=== PATIENT | female | born 1955 | race Caucasian/White ===

== ENCOUNTER 2019-09-07 16:41 | Inpatient (IN) | payer MEDICARE, MEDICAID ==
[~2019-09-07] VITALS: Ht 165.1 cm; Wt 85.2 kg
[2019-09-07] MEDS ORDERED: normal saline 1000ML IV soln IVB ONE (19:45)
[2019-09-07] MEDS ORDERED: ondansetron/PF 4mg/2ml inj IV ONE (19:45)
[2019-09-07] MEDS ORDERED: iohexol 300mg/ml 100ml inj. ONE (19:51)
--- NOTE | 2019-09-07 20:00 | NUR ---
PT IS ONLY ABLE TO LAY ON LEFT SIDE SECONDARY TO PAIN. SHE WILL BE MEDICATED ORDERED. SHE REPORTS THAT SHE TRIPPED YESTERDAY AND LANDED ON A TREE ROOT ON HER LEFT SIDE. C\O LEFT FLANK, RIB CAGE AND NECK/SHOULDER PAIN ON THE LEFT. PT HAS BILATERAL BREATH SOUNDS, PAIN WORSE WITH DEEP INSPIRATION.
[2019-09-07] MEDS: fentaNYL/PF 50MCG/1 ML 2ML syringe IV PRN ×3 (20:11→21:43)
--- NOTE | 2019-09-07 20:17 | NUR ---
daughter at bedside - pt has been medicated - awaiting CT scan
[2019-09-07 20:22] LABS: BASOPHILS # (AUTO) 0.1 X10'3 (0-0.2); BASOPHILS % (AUTO) 0.7 % (0-1); EOSINOPHILS % (AUTO) 0.1 % (0-6); HEMATOCRIT 30.3 % (35.0-45.0); HEMOGLOBIN 10.5 g/dl (12.0-16.0); LYMPHOCYTES # (AUTO) 1.3 X10'3 (1.1-4.8); LYMPHOCYTES % (AUTO) 12.5 % (21-51); MEAN CORPUSCULAR HGB CONC 34.7 g/dL (33.0-36.5); MEAN CORPUSCULAR VOLUME 86.5 FL (78-98); MEAN PLATELET VOLUME 7.4 FL (7.4-10.4); MONOCYTES # (AUTO) 0.4 X10'3 (0-0.9); MONOCYTES % (AUTO) 4.3 % (2-12); NEUTROPHILS # (AUTO) 8.6 X10'3 (1.8-7.7); NEUTROPHILS % (AUTO) 82.4 % (42-75); PLATELET COUNT 400 X10'3 (140-440); RED CELL DISTRIBUTION WIDTH 14.2 % (11.5-14.5); WHITE BLOOD COUNT 10.4 X10'3 (4.5-11.0)
[2019-09-07 20:30] LABS: ALANINE AMINOTRANSFERASE 21 U/L (12-78); ALBUMIN 3.6 G/DL (3.4-5.0); ALKALINE PHOSPHATASE 126 IU/L (46-116); ANION GAP 9 (8-16); ASPARTATE AMINO TRANSFERASE 11 U/L (10-37); BILIRUBIN,TOTAL 0.2 MG/DL (0.1-1.0); BLOOD UREA NITROGEN 13 MG/DL (7-18); BUN/CREATININE RATIO 9.2 (6.6-38.0); CHLORIDE 108 MMOL/L (99-107); CREATININE 1.42 MG/DL (0.40-0.90); GLUCOSE 140 MG/DL (70-104); POTASSIUM 3.8 MMOL/L (3.5-5.1); SODIUM 143 MMOL/L (135-145); TOTAL PROTEIN 7.2 G/DL (6.4-8.2); eGFR 37 ML/MIN
[2019-09-07 20:38] LABS: MAGNESIUM 2.1 MG/DL (1.5-2.4)
[2019-09-07] MEDS ORDERED: ringers solution, lacted 1,000 ML IV SCH (22:42)
[2019-09-07] MEDS ORDERED: morphine 4 MG/ML inj SYRINge IV PRN (22:45)
[2019-09-07] MEDS ORDERED: hydrALAZINE 20mg/ml inj. IV PRN (22:45)
[2019-09-07] MEDS ORDERED: labetalol 20mg/4ml (5mg/ml) syringe IV PRN (22:45)
[2019-09-07] MEDS ORDERED: fentaNYL/PF 50MCG/1 ML 2ML syringe IV PRN ×2 (22:45)
[2019-09-07] MEDS ORDERED: ondansetron/PF 4mg/2ml inj IV PRN (22:45)
[2019-09-07] MEDS ORDERED: fentaNYL/PF 50MCG/1 ML 2ML syringe ONE ×2 (22:58→23:42)
[2019-09-07] MEDS ORDERED: etomidate 2mg/ml inj. ONE (22:58)
[2019-09-07] MEDS ORDERED: midazolam 2 mg/2 ml injection ONE (22:58)
[2019-09-07] MEDS ORDERED: rocuronium 10mg/ml inj IV ONE (22:58)
[2019-09-07] MEDS ORDERED: ceFAZolin 1000mg inj ONE (23:01)
[2019-09-07] MEDS ORDERED: albumin (Human) 5% 250ml 250 ML IV ONE ×2 (23:04)
--- NOTE | 2019-09-07 23:07 | NUR ---
PT SEEN BY GELACIO AT BEDSIDE THEN TAKEN TO OR - CONSENTS PLACED ON CHART. 2ND IV STARTED AND EXTENSION TUBING PLACED. DAUGHTER AND PT UPDATED ON PLAN OF CARE.
[2019-09-07] MEDS ORDERED: labetalol 20mg/4ml (5mg/ml) syringe IV ONE (23:31)
[2019-09-07] MEDS ORDERED: glycopyrrolate 0.2mg/ml inj ONE (23:49)
[2019-09-07] MEDS ORDERED: neostigmine methylsulfate 1 MG/ML 10ml vial ONE (23:49)
[2019-09-07] MEDS ORDERED: ondansetron/PF 4mg/2ml inj ONE (23:50)
[2019-09-08] VITALS (25 sets, daily range): BP systolic 129–209; BP diastolic 61–102
[2019-09-08] MEDS ORDERED: sugammadex 200mg/2ml injection IV ONE
--- NOTE | 2019-09-08 00:15 | NUR ---
Patient arrived to floor from OR via hospital bed, in apparent severe pain. BP elevated, reading 170s systolically via arterial line. Midline incision with abd, dry and intact. Bedside report received from anesthesiologist. Autologous blood transfusion administered at bedside per MD orders. Order received for morphine CADD for pain control. Will continue to monitor patient closely.
[2019-09-08] MEDS: fentaNYL/PF 50MCG/1 ML 2ML syringe IV PRN ×2 (00:33→00:48)
[2019-09-08] MEDS ORDERED: CADD PCA waste documentation MC SCH (00:55)
[2019-09-08] MEDS: morphine/NS 5 mg/ml CADD 50 ML IV SCH ×8 (01:00→16:04)
[2019-09-08 01:01] LABS: BASOPHILS % (AUTO) 0.2 % (0-1); EOSINOPHILS % (AUTO) 0 % (0-6); LYMPHOCYTES # (AUTO) 1.7 X10'3 (1.1-4.8); LYMPHOCYTES % (AUTO) 8.4 % (21-51); MEAN CORPUSCULAR HEMOGLOBIN 29.9 PG (27.0-31.0); MEAN CORPUSCULAR VOLUME 87.7 FL (78-98); MEAN PLATELET VOLUME 7.5 FL (7.4-10.4); MONOCYTES # (AUTO) 1.2 X10'3 (0-0.9); MONOCYTES % (AUTO) 5.9 % (2-12); NEUTROPHILS % (AUTO) 85.5 % (42-75); PLATELET COUNT 335 X10'3 (140-440); RED BLOOD COUNT 2.13 X10'6 (4.20-5.60); RED CELL DISTRIBUTION WIDTH 14.1 % (11.5-14.5); WHITE BLOOD COUNT 19.9 X10'3 (4.5-11.0)
[2019-09-08 01:06] LABS: HEMATOCRIT 18.7 % (35.0-45.0); HEMOGLOBIN 6.4 g/dl (12.0-16.0)
[2019-09-08 01:11] LABS: PARTIAL THROMBOPLASTIN TIME 22 SECONDS (22-32)
[2019-09-08 01:13] LABS: ALANINE AMINOTRANSFERASE 17 U/L (12-78); ALBUMIN 3.4 G/DL (3.4-5.0); ALBUMIN/GLOBULIN RATIO 1.5 (1.1-1.5); ALKALINE PHOSPHATASE 81 IU/L (46-116); ANION GAP 11 (8-16); ASPARTATE AMINO TRANSFERASE 10 U/L (10-37); BILIRUBIN,TOTAL 0.2 MG/DL (0.1-1.0); BLOOD UREA NITROGEN 13 MG/DL (7-18); BUN/CREATININE RATIO 11.7 (6.6-38.0); CALCIUM 7.4 MG/DL (8.5-10.1); CHLORIDE 111 MMOL/L (99-107); CREATININE 1.11 MG/DL (0.40-0.90); GLUCOSE 151 MG/DL (70-104); MAGNESIUM 1.6 MG/DL (1.5-2.4); SODIUM 144 MMOL/L (135-145); TOTAL CARBON DIOXIDE 22.3 MMOL/L (24-32); TOTAL PROTEIN 5.7 G/DL (6.4-8.2); eGFR 49 ML/MIN
[2019-09-08] MEDS: morphine 4 MG/ML inj SYRINge IV PRN ×5 (01:48→02:43)
[2019-09-08] MEDS: normal saline 1000ml 1,000 ML IV SCH ×3 (02:12→20:53)
--- NOTE | 2019-09-08 03:05 | NUR ---
Multiple calls had been made to pharmacy since initial order at 0040 to get morphine cartridge, cartridge finally ready. Morphine CADD pump set up per MD orders, education provided for CADD use. Patient verbalized understanding and demonstrated by pushing button appropriately.
[2019-09-08 05:06] LABS: BASOPHILS % (AUTO) 0.1 % (0-1); EOSINOPHILS % (AUTO) 0 % (0-6); HEMATOCRIT 28.8 % (35.0-45.0); HEMOGLOBIN 9.7 g/dl (12.0-16.0); LYMPHOCYTES # (AUTO) 0.9 X10'3 (1.1-4.8); LYMPHOCYTES % (AUTO) 5.4 % (21-51); MEAN CORPUSCULAR HEMOGLOBIN 30.1 PG (27.0-31.0); MEAN CORPUSCULAR HGB CONC 33.7 g/dL (33.0-36.5); MEAN CORPUSCULAR VOLUME 89.4 FL (78-98); MEAN PLATELET VOLUME 7.8 FL (7.4-10.4); MONOCYTES # (AUTO) 0.7 X10'3 (0-0.9); MONOCYTES % (AUTO) 3.8 % (2-12); NEUTROPHILS # (AUTO) 15.7 X10'3 (1.8-7.7); NEUTROPHILS % (AUTO) 90.7 % (42-75); PLATELET COUNT 292 X10'3 (140-440); RED BLOOD COUNT 3.23 X10'6 (4.20-5.60); RED CELL DISTRIBUTION WIDTH 14.5 % (11.5-14.5); WHITE BLOOD COUNT 17.3 X10'3 (4.5-11.0)
[2019-09-08 05:35] LABS: ALANINE AMINOTRANSFERASE 21 U/L (12-78); ALBUMIN 3.7 G/DL (3.4-5.0); ALBUMIN/GLOBULIN RATIO 1.4 (1.1-1.5); ALKALINE PHOSPHATASE 89 IU/L (46-116); ANION GAP 9 (8-16); ASPARTATE AMINO TRANSFERASE 20 U/L (10-37); BILIRUBIN,TOTAL 0.6 MG/DL (0.1-1.0); BLOOD UREA NITROGEN 11 MG/DL (7-18); CALCIUM 7.8 MG/DL (8.5-10.1); CHLORIDE 109 MMOL/L (99-107); GLUCOSE 181 MG/DL (70-104); MAGNESIUM 1.6 MG/DL (1.5-2.4); PHOSPHORUS 3.5 MG/DL (2.3-4.5); POTASSIUM 3.3 MMOL/L (3.5-5.1); SODIUM 142 MMOL/L (135-145); TOTAL CARBON DIOXIDE 24.1 MMOL/L (24-32); TOTAL PROTEIN 6.3 G/DL (6.4-8.2); eGFR 56 ML/MIN
[2019-09-08] MEDS ORDERED: potassium Cl 20mEq/100mL bag 100 ML IV PRN (06:00)
[2019-09-08] MEDS ORDERED: potassium Cl 20 mEq SR tablet PO PRN (06:00)
[2019-09-08] MEDS: potassium CL 10mEq/100ml bag 100 ML IV PRN ×4 (06:24→11:57)
--- NOTE | 2019-09-08 06:26 | NUR ---
Problems reprioritized. Patient report given, questions answered & plan of care reviewed with Kimberly MÁRQUEZ.
[2019-09-08] MEDS: K and/or MAG REPLACEMENT MC SCH (08:00)
--- NOTE | 2019-09-08 09:00 | NUR ---
Patient c/o 9/10 pain. During assessing patient would not allow myself and my orienteer to turn her due to too much pain. We will attempt to turn the patient at a later time in the shift after patient has better pain control.
[2019-09-08] MEDS ORDERED: METO-411 PO (10:01)
[2019-09-08] MEDS ORDERED: VITA1CAP PO (10:19)
[2019-09-08] MEDS ORDERED: OMEP20TA23 PO (10:19)
[2019-09-08] MEDS ORDERED: DULO-31 PO (10:19)
[2019-09-08] MEDS ORDERED: BUPR600F2 PO (10:19)
[2019-09-08] MEDS ORDERED: GUAN1TAB28 PO (10:19)
[2019-09-08] MEDS ORDERED: POTA10TA10 PO (10:19)
[2019-09-08] MEDS ORDERED: FURO-149 PO (10:19)
[2019-09-08] MEDS ORDERED: ASPI-1265 PO (10:19)
[2019-09-08] MEDS ORDERED: LEVO75TA7 PO (10:19)
[2019-09-08] MEDS ORDERED: GABA600T13 PO ×3 (10:19→14:06)
[2019-09-08] MEDS ORDERED: PRAV40TA3 PO (10:19)
[2019-09-08] MEDS ORDERED: pneumococcal 23-VAL P-sac vacc 25 mcg/0.5ml vial IMVAC ONE (10:35)
[2019-09-08] MEDS ORDERED: DIPH-423 PO (10:39)
[2019-09-08] MEDS ORDERED: TIZA2CAP PO (10:39)
[2019-09-08] MEDS ORDERED: FURO40TA4 PO (10:50)
[2019-09-08] MEDS ORDERED: POTA-82 PO (10:50)
--- NOTE | 2019-09-08 12:00 | NUR ---
Orienteer documentation: I have reviewed and agree with interventions, assessments performed and documented by Bernadine Naranjo RN . Orienteer Medication Administration: For this medication-pass time frame, medication were reviewed, dispensed, administered and documented per hospital policy by Bernadine Naranjo RN.
[2019-09-08] MEDS ORDERED: CADD PCA waste documentation MC PRN ×2 (12:35→16:40)
[2019-09-08] MEDS ORDERED: naloxone 0.4 mg/ml inj IV PRN ×2 (12:35→16:40)
--- NOTE | 2019-09-08 12:47 | NUR ---
Patient in room CICU 2016. I have received report from Lelo MÁRQUEZ and had the opportunity to ask questions and assume patient care.
--- NOTE | 2019-09-08 12:47 | NUR ---
Patient has been in 8-9/10 pain during this shift. She has a Morphine CADD pump at which she has 1.00 mg available to her with a [address] Carter came during rounds and gave orders for the patient to have a 0.5mg continuous rate. Charge nurse Jennifer addressed this. Due tob patient's pain, she was not allowing for turning her. I was not able to do a complete skin assessment. I passed this information on to WILLI Mckeon in report as I will be passing this patient off. Problems reprioritized. Patient report given, questions answered & plan of care reviewed with WILLI Mckeon.
[2019-09-08] MEDS ORDERED: POTA10TA36 PO (13:57)
[2019-09-08] MEDS ORDERED: LORA10TA7 PO (14:06)
[2019-09-08] MEDS ORDERED: BUPR450F2 SL (14:06)
[2019-09-08] MEDS ORDERED: BUPR600F2 BU (14:17)
[2019-09-08 14:38] LABS: HEMATOCRIT 27.7 % (35.0-45.0); HEMOGLOBIN 9.2 g/dl (12.0-16.0); MEAN CORPUSCULAR HGB CONC 33.3 g/dL (33.0-36.5); MEAN CORPUSCULAR VOLUME 90.1 FL (78-98); MEAN PLATELET VOLUME 7.7 FL (7.4-10.4); PLATELET COUNT 277 X10'3 (140-440); RED BLOOD COUNT 3.08 X10'6 (4.20-5.60); RED CELL DISTRIBUTION WIDTH 14.9 % (11.5-14.5); WHITE BLOOD COUNT 18.7 X10'3 (4.5-11.0)
[2019-09-08] MEDS ORDERED: ondansetron/PF 4mg/2ml inj IV PRN (14:40)
[2019-09-08] MEDS ORDERED: ondansetron/PF 4mg/2ml inj ONE (14:44)
--- NOTE | 2019-09-08 15:16 | NUR ---
Previous day nurse Lelo stated pt. refused to turn all shift today. Pt. turned for skin check and to remove extra linen that came from OR last noc/yesterday. Open area noted to left buttock. Photos obtained. Foam dressing applied. Charge nurse notified and WOC care order placed.
--- NOTE | 2019-09-08 16:35 | NUR ---
Dr. Carter notified of vomiting unrelieved by Zofran. Order received to increase dose to 8mg.
[2019-09-08] MEDS: HYDROmorphone/NS 1 mg/ml CADD 50 ML IV SCH ×6 (17:00→23:00)
--- NOTE | 2019-09-08 17:18 | NUR ---
Morphine CADD dc'd. Replaced with Dilaudid REROLLING MACHINE OPERATOR @ standard settings.
[2019-09-08 17:23] LABS: HEMATOCRIT 28.2 % (35.0-45.0); HEMOGLOBIN 9.4 g/dl (12.0-16.0); MEAN CORPUSCULAR HEMOGLOBIN 29.9 PG (27.0-31.0); MEAN CORPUSCULAR HGB CONC 33.4 g/dL (33.0-36.5); MEAN CORPUSCULAR VOLUME 89.4 FL (78-98); PLATELET COUNT 308 X10'3 (140-440); RED BLOOD COUNT 3.15 X10'6 (4.20-5.60); WHITE BLOOD COUNT 20.2 X10'3 (4.5-11.0)
[2019-09-08] MEDS: ondansetron/PF 4mg/2ml inj IV PRN ×2 (17:33→23:31)
--- NOTE | 2019-09-08 18:03 | NUR ---
Pt. continues to vomit despite the increased Zofran dose, c/o pain but hesitant to use Dil. DIESEL ENGINE SPECIALIST due to n/v. RN told Charge Nurse pt. may need NGT.
--- NOTE | 2019-09-08 18:33 | NUR ---
Patient in room CICU 2016. I have received report from Linda MÁRQUEZ and had the opportunity to ask questions and assume patient care. Patient in bed in high-gonzalez's with eyes closed, in no apparent distress at this time. BP elevated with SBP in 180s-190s via arterial line. Dilaudid CADD pump running for pain control. Will continue to monitor patient closely.
--- NOTE | 2019-09-08 19:00 | NUR ---
Notified Julius Hirsch regarding patient's SBP between 190s-200s via arterial line, as well as patient's persistent nausea/vomiting despite recent zofran administration. New orders received.
[2019-09-08] MEDS: docusate sod 100mg capsule PO SCH (19:11)
[2019-09-08] MEDS: sennosides/docusate sodium tablet PO SCH (19:11)
[2019-09-08] MEDS: hydrALAZINE 20mg/ml inj. IV PRN (19:19)
[2019-09-08] MEDS: proCHLORperazine 10 MG/2 ml inj IV PRN (19:19)
[2019-09-08] MEDS ORDERED: hydrALAZINE 20mg/ml inj. IV ONE (20:10)
--- NOTE | 2019-09-08 21:41 | NUR ---
Notified Julius Hirsch regarding patient's persistent pain on current CADD settings. States okay to increase demand dose to 0.3mg q10 minutes PRN and to add a continuous rate of 0.3mg/hr. Will change settings on pump.
[2019-09-08] MEDS: acetaminophen 650mg rectal suppository RC PRN (22:17)
[2019-09-09] VITALS (24 sets, daily range): BP systolic 109–197; BP diastolic 63–88
[2019-09-09 00:58] LABS: BASOPHILS # (AUTO) 0.1 X10'3 (0-0.2); BASOPHILS % (AUTO) 0.6 % (0-1); EOSINOPHILS # (AUTO) 0.1 X10'3 (0-0.9); MEAN CORPUSCULAR VOLUME 89.3 FL (78-98); MEAN PLATELET VOLUME 7.8 FL (7.4-10.4); WHITE BLOOD COUNT 20.7 X10'3 (4.5-11.0)
[2019-09-09 01:00] LABS: EOSINOPHILS % (AUTO) 0.5 % (0-6); HEMATOCRIT 27.9 % (35.0-45.0); HEMOGLOBIN 9.4 g/dl (12.0-16.0); LYMPHOCYTES # (AUTO) 2.3 X10'3 (1.1-4.8); LYMPHOCYTES % (AUTO) 11.2 % (21-51); MEAN CORPUSCULAR HEMOGLOBIN 30.2 PG (27.0-31.0); MEAN CORPUSCULAR HGB CONC 33.8 g/dL (33.0-36.5); MONOCYTES # (AUTO) 2.1 X10'3 (0-0.9); MONOCYTES % (AUTO) 10.2 % (2-12); NEUTROPHILS % (AUTO) 77.5 % (42-75); PLATELET COUNT 292 X10'3 (140-440); RED BLOOD COUNT 3.12 X10'6 (4.20-5.60); RED CELL DISTRIBUTION WIDTH 14.7 % (11.5-14.5)
[2019-09-09] MEDS: HYDROmorphone/NS 1 mg/ml CADD 50 ML IV SCH ×12 (01:00→23:00)
[2019-09-09 01:09] LABS: ALANINE AMINOTRANSFERASE 20 U/L (12-78); ALBUMIN 3.3 G/DL (3.4-5.0); ALBUMIN/GLOBULIN RATIO 1.1 (1.1-1.5); ALKALINE PHOSPHATASE 77 IU/L (46-116); ANION GAP 10 (8-16); ASPARTATE AMINO TRANSFERASE 22 U/L (10-37); BILIRUBIN,TOTAL 0.3 MG/DL (0.1-1.0); BLOOD UREA NITROGEN 11 MG/DL (7-18); BUN/CREATININE RATIO 13.9 (6.6-38.0); CALCIUM 7.7 MG/DL (8.5-10.1); CHLORIDE 112 MMOL/L (99-107); CREATININE 0.79 MG/DL (0.40-0.90); GLUCOSE 125 MG/DL (70-104); MAGNESIUM 1.7 MG/DL (1.5-2.4); PHOSPHORUS 2.8 MG/DL (2.3-4.5); POTASSIUM 3.5 MMOL/L (3.5-5.1); SODIUM 145 MMOL/L (135-145); TOTAL CARBON DIOXIDE 22.6 MMOL/L (24-32); TOTAL PROTEIN 6.2 G/DL (6.4-8.2); eGFR 73 ML/MIN
[2019-09-09 01:24] LABS: NUCLEATED RED BLOOD CELLS 9 /100WBC (0-0); TOTAL CELLS COUNTED 100
[2019-09-09 01:25] LABS: LARGE PLATELETS FEW; PLATELET ESTIMATE NORMAL
[2019-09-09] MEDS: proCHLORperazine 10 MG/2 ml inj IV PRN ×3 (02:55→18:59)
[2019-09-09] MEDS: hydrALAZINE 20mg/ml inj. IV PRN ×2 (04:34→10:21)
[2019-09-09] MEDS: ondansetron/PF 4mg/2ml inj IV PRN ×3 (05:26→23:48)
--- NOTE | 2019-09-09 06:00 | NUR ---
Notified Julius Hirshc NP regarding patient's HR back into 130s in sinus tach. No new orders received at this time.
--- NOTE | 2019-09-09 06:30 | NUR ---
Patient in room CICU 2016. I have received report from Jose MÁRQUEZ and had the opportunity to ask questions and assume patient care.
--- NOTE | 2019-09-09 06:34 | NUR ---
Problems reprioritized. Patient report given, questions answered & plan of care reviewed with Le MÁRQUEZ.
[2019-09-09] MEDS: normal saline 1000ml 1,000 ML IV SCH ×2 (06:53→16:53)
[2019-09-09] MEDS: K and/or MAG REPLACEMENT MC SCH (07:27)
--- NOTE | 2019-09-09 07:28 | NUR ---
per dr navarrete we are restarting the metoprolol 100 mg PO daily to address the HR of 136
[2019-09-09] MEDS: docusate sod 100mg capsule PO SCH ×2 (07:44→20:47)
[2019-09-09] MEDS: sennosides/docusate sodium tablet PO SCH ×2 (07:45→20:47)
[2019-09-09] MEDS ORDERED: metoprolol tartrate 50mg tablet PO SCH (08:00)
[2019-09-09] MEDS: acetaminophen 650mg rectal suppository RC PRN (10:35)
[2019-09-09] MEDS ORDERED: furosemide 40mg tablet PO PRN (10:55)
[2019-09-09] MEDS ORDERED: vancomycin inj 1,250 MG in normal saline 250ml IV soln 250 ML IV SCH (11:00)
[2019-09-09 11:19] LABS: MEAN CORPUSCULAR HEMOGLOBIN 30.4 PG (27.0-31.0); MEAN CORPUSCULAR HGB CONC 33.5 g/dL (33.0-36.5); MEAN CORPUSCULAR VOLUME 90.9 FL (78-98); MEAN PLATELET VOLUME 8.1 FL (7.4-10.4); PLATELET COUNT 296 X10'3 (140-440); RED BLOOD COUNT 2.97 X10'6 (4.20-5.60); RED CELL DISTRIBUTION WIDTH 15.3 % (11.5-14.5); WHITE BLOOD COUNT 20.3 X10'3 (4.5-11.0)
[2019-09-09] MEDS: cefTAZidime inj. 1 GM in normal saline 100ml IV soln 100 ML IV SCH ×2 (11:35→17:15)
[2019-09-09] MEDS: gabapentin 300mg capsule PO SCH ×2 (11:35→20:47)
[2019-09-09] MEDS: VANCOmycin 1250MG/NS 250ml Bag 250 ML IV SCH (13:05)
--- NOTE | 2019-09-09 14:15 | NUR ---
Initial: Pt admit s/p fall and subsequent splenectomy. Septic w/ fever today per MD. Advanced to clear liquids from NPO PO pending. LBM 09/07. Pt is nauseous receiving zofran at this time. Will monitor for PO tolerance and diet advancement as well as additional protein needs. Rec: 1. advance diet per MD to heart healthy 2. monitor for additional protein needs pending PO hx 3. bowel care post-op 4. wt per rx Addendum: 09/09/19 at [address] Amended: Links added.
--- NOTE | 2019-09-09 17:00 | NUR ---
Patient's art line removed, cannula intact, bandage dry and clean, no blood noted. Will continue to monitor.
[2019-09-09] MEDS ORDERED: diltiazem 5mg/ml 5ml inj. IV PRN (17:35)
--- NOTE | 2019-09-09 17:36 | NUR ---
Patient had run of SVT up to 214, returned to sinus tach, notified Dr. Bullock, received order for cardizem 10 mg IVP as needed for SVT. Will continue to monitor
--- NOTE | 2019-09-09 18:39 | NUR ---
Problems reprioritized. Patient report given, questions answered & plan of care reviewed with MAC RN.
[2019-09-09] MEDS ORDERED: tPA-cathflo 2 MG/2 ml IV flush IVF ONE (19:55)
[2019-09-09] MEDS: BUPRENORPHINE HCL 600 MCG PO SCH (20:00)
[2019-09-09] MEDS: potassium chloride 10mEq ER tablet PO SCH (20:00)
[2019-09-09] MEDS: guanFACINE 1 mg tablet PO SCH (20:47)
[2019-09-09] MEDS: tizanidine 4mg tablet PO PRN (20:47)
[2019-09-09] MEDS: pravastatin 40mg tablet PO SCH (21:00)
[2019-09-10] VITALS (18 sets, daily range): BP systolic 121–162; BP diastolic 77–95
[2019-09-10 00:16] LABS: HEMATOCRIT 27.5 % (35.0-45.0); MEAN CORPUSCULAR HEMOGLOBIN 30.3 PG (27.0-31.0); MEAN CORPUSCULAR HGB CONC 32.6 g/dL (33.0-36.5); MEAN CORPUSCULAR VOLUME 92.7 FL (78-98); MEAN PLATELET VOLUME 8.1 FL (7.4-10.4); PLATELET COUNT 162 X10'3 (140-440); RED BLOOD COUNT 2.97 X10'6 (4.20-5.60); RED CELL DISTRIBUTION WIDTH 15.7 % (11.5-14.5); WHITE BLOOD COUNT 20.7 X10'3 (4.5-11.0)
[2019-09-10] MEDS: cefTAZidime inj. 1 GM in normal saline 100ml IV soln 100 ML IV SCH ×3 (00:33→17:25)
[2019-09-10] MEDS: HYDROmorphone/NS 1 mg/ml CADD 50 ML IV SCH ×9 (01:00→17:00)
[2019-09-10] MEDS ORDERED: acetaminophen 325mg tablet PO PRN (03:30)
[2019-09-10] MEDS: VANCOmycin 1250MG/NS 250ml Bag 250 ML IV SCH ×3 (03:46→23:15)
[2019-09-10] MEDS: normal saline 1000ml 1,000 ML IV SCH (03:46)
[2019-09-10] MEDS: proCHLORperazine 10 MG/2 ml inj IV PRN (03:50)
[2019-09-10 05:16] LABS: ALANINE AMINOTRANSFERASE 24 U/L (12-78); ALBUMIN 2.9 G/DL (3.4-5.0); ALBUMIN/GLOBULIN RATIO 0.9 (1.1-1.5); ALKALINE PHOSPHATASE 79 IU/L (46-116); ANION GAP 9 (8-16); ASPARTATE AMINO TRANSFERASE 19 U/L (10-37); BILIRUBIN,TOTAL 0.3 MG/DL (0.1-1.0); BLOOD UREA NITROGEN 8 MG/DL (7-18); BUN/CREATININE RATIO 13.3 (6.6-38.0); CALCIUM 7.6 MG/DL (8.5-10.1); CHLORIDE 113 MMOL/L (99-107); GLUCOSE 116 MG/DL (70-104); PHOSPHORUS 2.4 MG/DL (2.3-4.5); SODIUM 146 MMOL/L (135-145); TOTAL CARBON DIOXIDE 24.1 MMOL/L (24-32); TOTAL PROTEIN 6.1 G/DL (6.4-8.2); eGFR > 90 ML/MIN
[2019-09-10 05:18] LABS: POTASSIUM 2.9 MMOL/L (3.5-5.1)
[2019-09-10 05:33] LABS: BASOPHILS # (AUTO) 0.1 X10'3 (0-0.2); BASOPHILS % (AUTO) 0.4 % (0-1); EOSINOPHILS # (AUTO) 1.2 X10'3 (0-0.9); EOSINOPHILS % (AUTO) 6.3 % (0-6); HEMATOCRIT 25.7 % (35.0-45.0); HEMOGLOBIN 8.5 g/dl (12.0-16.0); LYMPHOCYTES % (AUTO) 10.5 % (21-51); MEAN CORPUSCULAR HEMOGLOBIN 30.2 PG (27.0-31.0); MEAN CORPUSCULAR HGB CONC 33.1 g/dL (33.0-36.5); MEAN CORPUSCULAR VOLUME 91.1 FL (78-98); MEAN PLATELET VOLUME 8.2 FL (7.4-10.4); MONOCYTES % (AUTO) 10.9 % (2-12); NEUTROPHILS # (AUTO) 13.4 X10'3 (1.8-7.7); NEUTROPHILS % (AUTO) 71.9 % (42-75); PLATELET COUNT 291 X10'3 (140-440); RED BLOOD COUNT 2.82 X10'6 (4.20-5.60); RED CELL DISTRIBUTION WIDTH 15.4 % (11.5-14.5); WHITE BLOOD COUNT 18.7 X10'3 (4.5-11.0)
--- NOTE | 2019-09-10 06:00 | NUR ---
RN Note -Shift Summary Pt has had pain and nausea, is reluctant to move and eat. Educated pt on the need to have something in her stomach, especially with pain meds. Started to eat jello and drink tea around 0400 and had some improvement with nausea.
[2019-09-10] MEDS: potassium CL 10mEq/100ml bag 100 ML IV PRN ×8 (06:03→18:55)
[2019-09-10 06:41] LABS: LARGE PLATELETS FEW; NUCLEATED RED BLOOD CELLS 2 /100WBC (0-0); PLATELET ESTIMATE NORMAL; POLYCHROMASIA 1+; TOTAL CELLS COUNTED 100
--- NOTE | 2019-09-10 06:48 | NUR ---
Patient in room CICU 2016. I have received report from WILLI Saez and had the opportunity to ask questions and assume patient care.
[2019-09-10] MEDS: K and/or MAG REPLACEMENT MC SCH (07:34)
[2019-09-10] MEDS: levoTHYROXINE 75mcg tablet PO SCH (07:50)
[2019-09-10] MEDS: pantoprazole 40mg Tablet.DR PO SCH (07:50)
[2019-09-10] MEDS: BUPRENORPHINE HCL 600 MCG PO SCH ×2 (08:00→20:00)
[2019-09-10] MEDS: loratadine 10mg tablet PO SCH (08:35)
[2019-09-10] MEDS: vitamin B comp w/Vit. C tab 1 TAB TABLET PO SCH (08:35)
[2019-09-10] MEDS: duloxetine 30mg CAPSULE.DR PO SCH (08:35)
[2019-09-10] MEDS: sennosides/docusate sodium tablet PO SCH ×2 (08:36→20:41)
[2019-09-10] MEDS: aspirin 81mg tab.chew PO SCH (08:36)
[2019-09-10] MEDS: docusate sod 100mg capsule PO SCH ×2 (08:36→20:38)
[2019-09-10] MEDS: metoprolol succinate 25mg (24-HOUR) SR. Tablet PO SCH (08:36)
[2019-09-10] MEDS: potassium chloride 10mEq ER tablet PO SCH ×2 (08:37→20:39)
[2019-09-10] MEDS: gabapentin 400mg capsule PO SCH (08:45)
[2019-09-10 09:50] LABS: CLARITY,URINE CLEAR (Clear); COLOR,URINE STRAW (Yellow); GLUCOSE, URINE NEGATIVE (Neg); KETONES,URINE NEGATIVE (Neg); LEUKOCYTE ESTERASE ,URINE NEGATIVE (Neg); NITRITES, URINE NEGATIVE (Neg); OCCULT BLOOD,URINE TRACE-LYSED (Neg); PROTEIN,URINE NEGATIVE (Neg); UROBILINOGEN,URINE 0.2 E.U/dL (0.2-1.0)
[2019-09-10 09:51] LABS: UA COLLECTION TYPE FOLEY CATH
[2019-09-10 10:11] LABS: BACTERIA,URINE FEW /HPF (Neg); MUCUS STRANDS FEW /LPF (Neg); SQUAMOUS EPITHELIAL CELL,UR FEW /LPF (FEW)
[2019-09-10] MEDS: ondansetron/PF 4mg/2ml inj IV PRN (10:58)
[2019-09-10] MEDS: gabapentin 300mg capsule PO SCH ×2 (12:00→20:41)
--- NOTE | 2019-09-10 15:00 | NUR ---
Received patient on unit stable. CADD pump running and working. Settings checked with ICU nurse. Patient c/o tenderness to Left AC IV. Site is reddened and warm and tender. IV DC'd and PICC nurse called to start new IV.
--- NOTE | 2019-09-10 18:00 | NUR ---
Problems reprioritized. Patient report given, questions answered & plan of care reviewed with Jamie MÁRQUEZ.
--- NOTE | 2019-09-10 18:40 | NUR ---
Patient in room PCU 3016. I have received report from WILLI Read and had the opportunity to ask questions and assume patient care. Pt is sleeping with no sign of distress. Administering latest bag of potassium, then I will order a redraw(2-6 hours) per protocol.
[2019-09-10] MEDS: HYDROmorphone 1 mg/ml syringe IV PRN (20:14)
[2019-09-10] MEDS: lactobacillus rhamnosus 10,000 MMU CELLS/CAPSULE PO SCH (20:39)
[2019-09-10] MEDS: pravastatin 40mg tablet PO SCH (22:10)
[2019-09-10] MEDS: tizanidine 4mg tablet PO PRN (22:20)
[2019-09-10] MEDS ORDERED: VANCOMYCIN LEVEL IV ONE (22:30)
[2019-09-10 23:07] LABS: POTASSIUM 3.4 MMOL/L (3.5-5.1)
[2019-09-11] MEDS: ondansetron/PF 4mg/2ml inj IV PRN (00:02)
[2019-09-11] MEDS: HYDROmorphone 1 mg/ml syringe IV PRN ×5 (00:13→19:32)
[2019-09-11] MEDS: guanFACINE 1 mg tablet PO SCH (00:28)
[2019-09-11] MEDS: cefTAZidime inj. 1 GM in normal saline 100ml IV soln 100 ML IV SCH ×3 (01:13→17:04)
[2019-09-11 02:00] VITALS: BP 105/52
--- NOTE | 2019-09-11 02:08 | NUR ---
Requested Tenex tab form pharmacy. Pravachol medication was on CICU and her daughter would bring Buprenorphine later-on today
[2019-09-11 05:24] LABS: BASOPHILS # (AUTO) 0.1 X10'3 (0-0.2); BASOPHILS % (AUTO) 0.5 % (0-1); EOSINOPHILS # (AUTO) 1.5 X10'3 (0-0.9); EOSINOPHILS % (AUTO) 9.5 % (0-6); HEMATOCRIT 23.5 % (35.0-45.0); HEMOGLOBIN 7.9 g/dl (12.0-16.0); LYMPHOCYTES # (AUTO) 2.2 X10'3 (1.1-4.8); LYMPHOCYTES % (AUTO) 13.7 % (21-51); MEAN CORPUSCULAR HEMOGLOBIN 30.5 PG (27.0-31.0); MEAN CORPUSCULAR HGB CONC 33.5 g/dL (33.0-36.5); MEAN CORPUSCULAR VOLUME 90.9 FL (78-98); MONOCYTES # (AUTO) 1.7 X10'3 (0-0.9); MONOCYTES % (AUTO) 10.6 % (2-12); NEUTROPHILS # (AUTO) 10.5 X10'3 (1.8-7.7); NEUTROPHILS % (AUTO) 65.7 % (42-75); PLATELET COUNT 327 X10'3 (140-440); RED BLOOD COUNT 2.59 X10'6 (4.20-5.60); RED CELL DISTRIBUTION WIDTH 15.4 % (11.5-14.5)
[2019-09-11 05:46] LABS: ALANINE AMINOTRANSFERASE 20 U/L (12-78); ALBUMIN 2.5 G/DL (3.4-5.0); ALBUMIN/GLOBULIN RATIO 0.8 (1.1-1.5); ALKALINE PHOSPHATASE 77 IU/L (46-116); ANION GAP 6 (8-16); ASPARTATE AMINO TRANSFERASE 20 U/L (10-37); BILIRUBIN,TOTAL 0.3 MG/DL (0.1-1.0); BLOOD UREA NITROGEN 8 MG/DL (7-18); BUN/CREATININE RATIO 12.7 (6.6-38.0); CALCIUM 7.9 MG/DL (8.5-10.1); CHLORIDE 109 MMOL/L (99-107); CREATININE 0.63 MG/DL (0.40-0.90); GLUCOSE 112 MG/DL (70-104); PHOSPHORUS 1.7 MG/DL (2.3-4.5); POTASSIUM 3.4 MMOL/L (3.5-5.1); SODIUM 141 MMOL/L (135-145); TOTAL CARBON DIOXIDE 25.6 MMOL/L (24-32); TOTAL PROTEIN 5.5 G/DL (6.4-8.2); eGFR > 90 ML/MIN
[2019-09-11 06:00] VITALS: BP 109/63
--- NOTE | 2019-09-11 06:00 | NUR ---
Patient in room PCU 3016. I have received report from Jamie MÁRQUEZ and had the opportunity to ask questions and assume patient care.
--- NOTE | 2019-09-11 06:25 | NUR ---
Problems reprioritized. Patient report given, questions answered & plan of care reviewed with WILLI Read. Patient stable at shift change
[2019-09-11 07:52] LABS: NUCLEATED RED BLOOD CELLS 4 /100WBC (0-0); TOTAL CELLS COUNTED 100
[2019-09-11] MEDS: metoprolol succinate 25mg (24-HOUR) SR. Tablet PO SCH (07:52)
[2019-09-11] MEDS: potassium chloride 10mEq ER tablet PO SCH ×2 (07:53→21:41)
[2019-09-11] MEDS: gabapentin 400mg capsule PO SCH (07:53)
[2019-09-11] MEDS: duloxetine 30mg CAPSULE.DR PO SCH (07:53)
[2019-09-11] MEDS: vitamin B comp w/Vit. C tab 1 TAB TABLET PO SCH (07:53)
[2019-09-11] MEDS: pantoprazole 40mg Tablet.DR PO SCH (07:53)
[2019-09-11] MEDS: sennosides/docusate sodium tablet PO SCH ×2 (07:53→21:22)
[2019-09-11] MEDS: docusate sod 100mg capsule PO SCH ×2 (07:53→21:23)
[2019-09-11] MEDS: lactobacillus rhamnosus 10,000 MMU CELLS/CAPSULE PO SCH ×2 (07:53→21:22)
[2019-09-11] MEDS: aspirin 81mg tab.chew PO SCH (07:53)
[2019-09-11 07:54] LABS: PLATELET ESTIMATE NORMAL; POLYCHROMASIA 1+; TEAR DROP CELLS FEW
[2019-09-11] MEDS: BUPRENORPHINE HCL 600 MCG PO SCH ×2 (08:00→20:00)
[2019-09-11] MEDS: levoTHYROXINE 75mcg tablet PO SCH (08:06)
[2019-09-11] MEDS: loratadine 10mg tablet PO SCH (08:07)
--- NOTE | 2019-09-11 09:49 | NUR ---
Call to Dr Worthington re: increased abdominal pain despite IV Dilaudid. No new orders.
[2019-09-11] MEDS ORDERED: magnesium 4gm in 100ml NS 100 ML IV PRN (10:45)
[2019-09-11] MEDS ORDERED: magnesium Cl slow-release 64mg tablet PO PRN (10:45)
[2019-09-11 11:00] VITALS: BP 111/56
[2019-09-11] MEDS: gabapentin 300mg capsule PO SCH ×2 (11:21→21:23)
[2019-09-11] MEDS: Neutra Phos packet PO PRN (11:21)
[2019-09-11] MEDS: potassium Cl 20 mEq SR tablet PO PRN (11:21)
[2019-09-11] MEDS: K and/or MAG REPLACEMENT MC SCH (11:22)
--- NOTE | 2019-09-11 14:06 | NUR ---
Page to PICC nurse re: Room 9981L Arlen Kulkarni PIV reddened,tender and swollen, just started yesterday by PICC after 2 attempts by nursing. Can you place an extended please?
[2019-09-11 15:00] VITALS: BP 122/69
[2019-09-11 18:00] VITALS: BP 149/79
--- NOTE | 2019-09-11 18:00 | NUR ---
Problems reprioritized. Patient report given, questions answered & plan of care reviewed with Jamie MÁRQUEZ.
--- NOTE | 2019-09-11 18:05 | NUR ---
Patient in room PCU 3014O I have received report from WILLI Read and had the opportunity to ask questions and assume patient care.
[2019-09-11] MEDS: pravastatin 40mg tablet PO SCH (21:23)
[2019-09-11] MEDS: tizanidine 4mg tablet PO PRN (21:24)
[2019-09-11 22:00] VITALS: BP 141/74
[2019-09-12] MEDS: HYDROmorphone 1 mg/ml syringe IV PRN ×5 (00:07→20:59)
[2019-09-12] MEDS: guanFACINE 1 mg tablet PO SCH ×2 (00:08→20:55)
[2019-09-12] MEDS: Neutra Phos packet PO PRN (00:55)
[2019-09-12] MEDS: potassium Cl 20 mEq SR tablet PO PRN ×4 (00:56→15:35)
[2019-09-12] MEDS: cefTAZidime inj. 1 GM in normal saline 100ml IV soln 100 ML IV SCH ×3 (01:38→15:36)
[2019-09-12 02:00] VITALS: BP 111/69
[2019-09-12 06:00] VITALS: BP 127/72
--- NOTE | 2019-09-12 06:00 | NUR ---
Patient in room PCU 3016. I have received report from Jamie MÁRQUEZ and had the opportunity to ask questions and assume patient care.
--- NOTE | 2019-09-12 07:01 | NUR ---
Problems reprioritized. Patient report given, questions answered & plan of care reviewed with WILLI Read. Pt in stable condition at shift change
[2019-09-12] MEDS: BUPRENORPHINE HCL 600 MCG PO SCH ×2 (08:00→20:00)
[2019-09-12] MEDS: docusate sod 100mg capsule PO SCH ×2 (08:00→20:00)
[2019-09-12] MEDS: sennosides/docusate sodium tablet PO SCH ×2 (08:00→20:00)
[2019-09-12] MEDS: K and/or MAG REPLACEMENT MC SCH (08:00)
[2019-09-12 08:29] LABS: ALANINE AMINOTRANSFERASE 28 U/L (12-78); ALBUMIN 2.6 G/DL (3.4-5.0); ALBUMIN/GLOBULIN RATIO 0.8 (1.1-1.5); ALKALINE PHOSPHATASE 82 IU/L (46-116); ANION GAP 6 (8-16); ASPARTATE AMINO TRANSFERASE 24 U/L (10-37); BILIRUBIN,TOTAL 0.4 MG/DL (0.1-1.0); BLOOD UREA NITROGEN 6 MG/DL (7-18); BUN/CREATININE RATIO 9.7 (6.6-38.0); CALCIUM 8.2 MG/DL (8.5-10.1); CHLORIDE 109 MMOL/L (99-107); CREATININE 0.62 MG/DL (0.40-0.90); GLUCOSE 102 MG/DL (70-104); PHOSPHORUS 2.3 MG/DL (2.3-4.5); POTASSIUM 3.4 MMOL/L (3.5-5.1); SODIUM 141 MMOL/L (135-145); TOTAL CARBON DIOXIDE 25.8 MMOL/L (24-32); TOTAL PROTEIN 5.9 G/DL (6.4-8.2); eGFR > 90 ML/MIN
[2019-09-12] MEDS: loratadine 10mg tablet PO SCH (08:33)
[2019-09-12] MEDS: vitamin B comp w/Vit. C tab 1 TAB TABLET PO SCH (08:33)
[2019-09-12] MEDS: aspirin 81mg tab.chew PO SCH (08:33)
[2019-09-12] MEDS: pantoprazole 40mg Tablet.DR PO SCH (08:33)
[2019-09-12] MEDS: potassium chloride 10mEq ER tablet PO SCH ×2 (08:33→20:55)
[2019-09-12] MEDS: lactobacillus rhamnosus 10,000 MMU CELLS/CAPSULE PO SCH ×2 (08:34→20:55)
[2019-09-12] MEDS: levoTHYROXINE 75mcg tablet PO SCH (08:34)
[2019-09-12] MEDS: duloxetine 30mg CAPSULE.DR PO SCH (08:34)
[2019-09-12] MEDS: gabapentin 400mg capsule PO SCH (08:34)
[2019-09-12] MEDS: metoprolol succinate 25mg (24-HOUR) SR. Tablet PO SCH (08:35)
[2019-09-12 08:52] LABS: BASOPHILS # (AUTO) 0.2 X10'3 (0-0.2); BASOPHILS % (AUTO) 1.1 % (0-1); EOSINOPHILS # (AUTO) 1.7 X10'3 (0-0.9); EOSINOPHILS % (AUTO) 11.1 % (0-6); HEMATOCRIT 23.8 % (35.0-45.0); HEMOGLOBIN 7.9 g/dl (12.0-16.0); LYMPHOCYTES # (AUTO) 2.3 X10'3 (1.1-4.8); LYMPHOCYTES % (AUTO) 15.2 % (21-51); MEAN CORPUSCULAR HEMOGLOBIN 30.2 PG (27.0-31.0); MEAN CORPUSCULAR HGB CONC 33.4 g/dL (33.0-36.5); MEAN CORPUSCULAR VOLUME 90.2 FL (78-98); MONOCYTES # (AUTO) 1.9 X10'3 (0-0.9); MONOCYTES % (AUTO) 12.5 % (2-12); NEUTROPHILS % (AUTO) 60.1 % (42-75); PLATELET COUNT 445 X10'3 (140-440); RED BLOOD COUNT 2.63 X10'6 (4.20-5.60)
[2019-09-12 08:55] LABS: NUCLEATED RED BLOOD CELLS 1 /100WBC (0-0); TOTAL CELLS COUNTED 100
[2019-09-12 08:56] LABS: ANISOCYTOSIS 1+; PLATELET ESTIMATE NORMAL; POLYCHROMASIA 1+
[2019-09-12 11:00] VITALS: BP 138/68
--- NOTE | 2019-09-12 11:34 | NUR ---
Reassessment: Pt has been transferred out of critical care and to PCU. Diet has just been advanced to mechanical soft from clear liquids, pending documentation of PO intake since diet advancement. [facility] 09/11. Will continue to follow. Rec: 1. advance diet per MD to heart healthy 2. monitor for additional protein needs pending PO hx 3. bowel care post-op 4. wt per rx Addendum: 09/12/19 at [address] Amended: Links added.
[2019-09-12] MEDS: gabapentin 300mg capsule PO SCH ×2 (12:06→20:55)
[2019-09-12 15:32] VITALS: BP 150/88
--- NOTE | 2019-09-12 17:30 | NUR ---
Problems reprioritized. Patient report given, questions answered & plan of care reviewed with Christina MÁRQUEZ.
--- NOTE | 2019-09-12 17:38 | NUR ---
Patient in room PCU 3016. I have received report from WILLI Pepe and had the opportunity to ask questions and assume patient care.
[2019-09-12] MEDS: HYDROcodone/acetaminophen 10/325mg tab PO PRN ×2 (17:45→23:11)
[2019-09-12 19:00] VITALS: BP 139/82
[2019-09-12] MEDS: pravastatin 40mg tablet PO SCH (20:55)
[2019-09-12] MEDS ORDERED: VANCOMYCIN LEVEL IV ONE (22:30)
[2019-09-12 23:00] VITALS: BP 147/70
[2019-09-13] MEDS: cefTAZidime inj. 1 GM in normal saline 100ml IV soln 100 ML IV SCH ×3 (00:58→15:20)
[2019-09-13] MEDS: HYDROmorphone 1 mg/ml syringe IV PRN ×5 (01:07→18:18)
[2019-09-13 03:00] VITALS: BP 137/74
[2019-09-13] MEDS: HYDROcodone/acetaminophen 10/325mg tab PO PRN ×5 (03:13→20:46)
--- NOTE | 2019-09-13 06:16 | NUR ---
Problems reprioritized. Patient report given, questions answered & plan of care reviewed with WILLI Betancur.
[2019-09-13 06:27] LABS: BASOPHILS # (AUTO) 0.1 X10'3 (0-0.2); BASOPHILS % (AUTO) 0.7 % (0-1); EOSINOPHILS # (AUTO) 1.6 X10'3 (0-0.9); EOSINOPHILS % (AUTO) 11.2 % (0-6); HEMATOCRIT 24.1 % (35.0-45.0); HEMOGLOBIN 8.1 g/dl (12.0-16.0); LYMPHOCYTES # (AUTO) 2.3 X10'3 (1.1-4.8); LYMPHOCYTES % (AUTO) 16.5 % (21-51); MEAN CORPUSCULAR HEMOGLOBIN 30.2 PG (27.0-31.0); MEAN CORPUSCULAR HGB CONC 33.7 g/dL (33.0-36.5); MEAN CORPUSCULAR VOLUME 89.6 FL (78-98); MONOCYTES # (AUTO) 1.9 X10'3 (0-0.9); MONOCYTES % (AUTO) 13.7 % (2-12); NEUTROPHILS # (AUTO) 8.1 X10'3 (1.8-7.7); NEUTROPHILS % (AUTO) 57.9 % (42-75); PLATELET COUNT 541 X10'3 (140-440); RED BLOOD COUNT 2.69 X10'6 (4.20-5.60); RED CELL DISTRIBUTION WIDTH 14.9 % (11.5-14.5)
[2019-09-13 06:47] LABS: ALANINE AMINOTRANSFERASE 38 U/L (12-78); ALBUMIN 2.7 G/DL (3.4-5.0); ALBUMIN/GLOBULIN RATIO 0.8 (1.1-1.5); ALKALINE PHOSPHATASE 90 IU/L (46-116); ANION GAP 11 (8-16); ASPARTATE AMINO TRANSFERASE 28 U/L (10-37); BILIRUBIN,TOTAL 0.3 MG/DL (0.1-1.0); BLOOD UREA NITROGEN 4 MG/DL (7-18); BUN/CREATININE RATIO 6.2 (6.6-38.0); CALCIUM 8.3 MG/DL (8.5-10.1); CHLORIDE 109 MMOL/L (99-107); CREATININE 0.65 MG/DL (0.40-0.90); GLUCOSE 96 MG/DL (70-104); MAGNESIUM 1.9 MG/DL (1.5-2.4); PHOSPHORUS 2.8 MG/DL (2.3-4.5); POTASSIUM 3.7 MMOL/L (3.5-5.1); SODIUM 144 MMOL/L (135-145); TOTAL CARBON DIOXIDE 24.5 MMOL/L (24-32); TOTAL PROTEIN 6.1 G/DL (6.4-8.2); eGFR > 90 ML/MIN
--- NOTE | 2019-09-13 06:48 | NUR ---
Patient in room PCU 3016. I have received report from Christina MÁRQUEZ and had the opportunity to ask questions and assume patient care. Patient awake in bed with no complaints. Pain 5/5. Daughter in chair bedside. All immediate needs met at this time.
[2019-09-13 07:00] VITALS: BP 128/65
--- NOTE | 2019-09-13 07:06 | NUR ---
Patient in room PCU 3016. I have received report from Christina MÁRQUEZ, and had the opportunity to ask questions and assume patient care.Daughter at bedside. Patient resting in bed. Jenny Hui Student RN
[2019-09-13 07:22] LABS: ANISOCYTOSIS 1+; NUCLEATED RED BLOOD CELLS 4 /100WBC (0-0); PLATELET ESTIMATE INCREASED; TOTAL CELLS COUNTED 100
[2019-09-13 07:23] LABS: HYPOCHROMASIA 1+; LARGE PLATELETS FEW; POLYCHROMASIA 2+
[2019-09-13] MEDS: BUPRENORPHINE HCL 600 MCG PO SCH ×2 (08:00→20:00)
[2019-09-13] MEDS: sennosides/docusate sodium tablet PO SCH ×2 (08:00→20:00)
[2019-09-13] MEDS: docusate sod 100mg capsule PO SCH ×2 (08:00→20:00)
[2019-09-13] MEDS: duloxetine 30mg CAPSULE.DR PO SCH (08:00)
[2019-09-13] MEDS: gabapentin 400mg capsule PO SCH (08:01)
[2019-09-13] MEDS: loratadine 10mg tablet PO SCH (08:03)
[2019-09-13] MEDS: levoTHYROXINE 75mcg tablet PO SCH (08:03)
[2019-09-13] MEDS: metoprolol succinate 25mg (24-HOUR) SR. Tablet PO SCH (08:03)
[2019-09-13] MEDS: pantoprazole 40mg Tablet.DR PO SCH (08:04)
[2019-09-13] MEDS: lactobacillus rhamnosus 10,000 MMU CELLS/CAPSULE PO SCH ×2 (08:04→20:36)
[2019-09-13] MEDS: aspirin 81mg tab.chew PO SCH (08:04)
[2019-09-13] MEDS: potassium chloride 10mEq ER tablet PO SCH ×2 (08:15→20:36)
[2019-09-13] MEDS: vitamin B comp w/Vit. C tab 1 TAB TABLET PO SCH (08:16)
[2019-09-13 11:00] VITALS: BP 126/69
[2019-09-13] MEDS: gabapentin 300mg capsule PO SCH ×2 (11:13→20:38)
[2019-09-13 15:00] VITALS: BP 125/64
[2019-09-13 18:00] VITALS: BP 138/68
--- NOTE | 2019-09-13 18:13 | NUR ---
Patient in room PCU 3016. I have received report from WILLI Betancur and had the opportunity to ask questions and assume patient care.
--- NOTE | 2019-09-13 18:31 | NUR ---
Problems reprioritized. Patient report given, questions answered & plan of care reviewed with Altaf MÁRQUEZ. Patient stable at transfer of care.
--- NOTE | 2019-09-13 18:33 | NUR ---
Student documentation: I have reviewed and agree with all interventions, assessments performed and documented by Jenny MÁRQUEZ. Student Medication Administration: For this medication-pass time frame, all medication were reviewed, dispensed, administered and documented per hospital policy by Jenny MÁRQUEZ. Addendum: 09/13/19 at 1834 by Gypsy Perkins RN Jenny RAYMUNDO
[2019-09-13] MEDS: pravastatin 40mg tablet PO SCH (20:35)
[2019-09-13] MEDS: guanFACINE 1 mg tablet PO SCH (20:35)
[2019-09-14] VITALS (7 sets, daily range): BP systolic 124–141; BP diastolic 68–82
[2019-09-14] MEDS: cefTAZidime inj. 1 GM in normal saline 100ml IV soln 100 ML IV SCH ×2 (01:13→08:15)
[2019-09-14] MEDS: HYDROcodone/acetaminophen 10/325mg tab PO PRN ×3 (05:23→23:03)
[2019-09-14 06:11] LABS: BASOPHILS # (AUTO) 0.2 X10'3 (0-0.2); HEMOGLOBIN 8.4 g/dl (12.0-16.0)
[2019-09-14 06:14] LABS: BASOPHILS % (AUTO) 1.2 % (0-1); EOSINOPHILS % (AUTO) 12.7 % (0-6); HEMATOCRIT 24.6 % (35.0-45.0); LYMPHOCYTES # (AUTO) 2.5 X10'3 (1.1-4.8); LYMPHOCYTES % (AUTO) 15.8 % (21-51); MEAN CORPUSCULAR HEMOGLOBIN 30.5 PG (27.0-31.0); MEAN CORPUSCULAR HGB CONC 34.1 g/dL (33.0-36.5); MEAN CORPUSCULAR VOLUME 89.3 FL (78-98); MEAN PLATELET VOLUME 7.9 FL (7.4-10.4); MONOCYTES # (AUTO) 1.6 X10'3 (0-0.9); MONOCYTES % (AUTO) 10.5 % (2-12); NEUTROPHILS # (AUTO) 9.3 X10'3 (1.8-7.7); NEUTROPHILS % (AUTO) 59.8 % (42-75); PLATELET COUNT 663 X10'3 (140-440); RED BLOOD COUNT 2.75 X10'6 (4.20-5.60); WHITE BLOOD COUNT 15.5 X10'3 (4.5-11.0)
--- NOTE | 2019-09-14 06:15 | NUR ---
Patient in room PCU 3016. I have received report from and had the opportunity to ask questions and assume patient care WILLI Martin.
[2019-09-14 06:17] LABS: ALANINE AMINOTRANSFERASE 45 U/L (12-78); ALBUMIN 2.8 G/DL (3.4-5.0); ALBUMIN/GLOBULIN RATIO 0.8 (1.1-1.5); ALKALINE PHOSPHATASE 96 IU/L (46-116); ANION GAP 7 (8-16); ASPARTATE AMINO TRANSFERASE 27 U/L (10-37); BILIRUBIN,TOTAL 0.3 MG/DL (0.1-1.0); BLOOD UREA NITROGEN 6 MG/DL (7-18); BUN/CREATININE RATIO 8.5 (6.6-38.0); CALCIUM 8.6 MG/DL (8.5-10.1); CHLORIDE 107 MMOL/L (99-107); CREATININE 0.71 MG/DL (0.40-0.90); GLUCOSE 115 MG/DL (70-104); MAGNESIUM 1.9 MG/DL (1.5-2.4); PHOSPHORUS 3.9 MG/DL (2.3-4.5); POTASSIUM 3.8 MMOL/L (3.5-5.1); SODIUM 140 MMOL/L (135-145); TOTAL CARBON DIOXIDE 26.5 MMOL/L (24-32); TOTAL PROTEIN 6.3 G/DL (6.4-8.2); eGFR 83 ML/MIN
--- NOTE | 2019-09-14 06:34 | NUR ---
Problems reprioritized. Patient report given, questions answered & plan of care reviewed with WILLI Berger.
[2019-09-14] MEDS: BUPRENORPHINE HCL 600 MCG PO SCH ×2 (08:00→20:00)
[2019-09-14] MEDS: docusate sod 100mg capsule PO SCH ×2 (08:00→20:00)
[2019-09-14] MEDS: vitamin B comp w/Vit. C tab 1 TAB TABLET PO SCH (08:13)
[2019-09-14] MEDS: pantoprazole 40mg Tablet.DR PO SCH (08:13)
[2019-09-14] MEDS: aspirin 81mg tab.chew PO SCH (08:13)
[2019-09-14] MEDS: duloxetine 30mg CAPSULE.DR PO SCH (08:14)
[2019-09-14] MEDS: levoTHYROXINE 75mcg tablet PO SCH (08:14)
[2019-09-14] MEDS: sennosides/docusate sodium tablet PO SCH ×2 (08:14→20:00)
[2019-09-14] MEDS: loratadine 10mg tablet PO SCH (08:14)
[2019-09-14] MEDS: lactobacillus rhamnosus 10,000 MMU CELLS/CAPSULE PO SCH ×2 (08:14→20:42)
[2019-09-14] MEDS: potassium chloride 10mEq ER tablet PO SCH ×2 (08:15→20:44)
[2019-09-14] MEDS: metoprolol succinate 25mg (24-HOUR) SR. Tablet PO SCH (08:15)
[2019-09-14] MEDS: gabapentin 400mg capsule PO SCH (08:15)
[2019-09-14 08:22] LABS: GIANT PLATELET FEW; HYPOCHROMASIA 1+; LARGE PLATELETS FEW; PLATELET ESTIMATE INCREASED; POLYCHROMASIA 1+
[2019-09-14 08:23] LABS: ANISOCYTOSIS 1+
[2019-09-14] MEDS: HYDROmorphone 1 mg/ml syringe IV PRN ×3 (09:15→19:08)
[2019-09-14] MEDS: gabapentin 300mg capsule PO SCH ×2 (11:56→20:43)
--- NOTE | 2019-09-14 18:30 | NUR ---
Patient in room PCU 3016. I have received report from Celine Montalvo RN and had the opportunity to ask questions and assume patient care.
[2019-09-14] MEDS: ondansetron/PF 4mg/2ml inj IV PRN (19:08)
[2019-09-14] MEDS: pravastatin 40mg tablet PO SCH (20:43)
[2019-09-14] MEDS: guanFACINE 1 mg tablet PO SCH (20:44)
[2019-09-14] MEDS: tizanidine 4mg tablet PO PRN (23:03)
[2019-09-15] MEDS: HYDROmorphone 1 mg/ml syringe IV PRN ×2 (01:02→08:10)
[2019-09-15 02:30] VITALS: BP 97/56
[2019-09-15] MEDS: HYDROcodone/acetaminophen 10/325mg tab PO PRN ×2 (05:27→10:03)
[2019-09-15 05:49] LABS: HEMOGLOBIN 8.4 g/dl (12.0-16.0)
[2019-09-15 05:51] LABS: BASOPHILS # (AUTO) 0.2 X10'3 (0-0.2); BASOPHILS % (AUTO) 1.2 % (0-1); EOSINOPHILS % (AUTO) 13.3 % (0-6); HEMATOCRIT 24.8 % (35.0-45.0); LYMPHOCYTES # (AUTO) 2.7 X10'3 (1.1-4.8); MEAN CORPUSCULAR HEMOGLOBIN 29.9 PG (27.0-31.0); MEAN CORPUSCULAR HGB CONC 33.7 g/dL (33.0-36.5); MEAN CORPUSCULAR VOLUME 88.7 FL (78-98); MEAN PLATELET VOLUME 7.6 FL (7.4-10.4); MONOCYTES # (AUTO) 1.5 X10'3 (0-0.9); MONOCYTES % (AUTO) 10.3 % (2-12); NEUTROPHILS # (AUTO) 8.5 X10'3 (1.8-7.7); NEUTROPHILS % (AUTO) 57.2 % (42-75); PLATELET COUNT 792 X10'3 (140-440); RED CELL DISTRIBUTION WIDTH 14.8 % (11.5-14.5); WHITE BLOOD COUNT 14.8 X10'3 (4.5-11.0)
[2019-09-15 06:09] LABS: ALANINE AMINOTRANSFERASE 45 U/L (12-78); ALBUMIN 2.9 G/DL (3.4-5.0); ALBUMIN/GLOBULIN RATIO 0.8 (1.1-1.5); ALKALINE PHOSPHATASE 99 IU/L (46-116); ANION GAP 9 (8-16); ASPARTATE AMINO TRANSFERASE 21 U/L (10-37); BILIRUBIN,TOTAL 0.2 MG/DL (0.1-1.0); BLOOD UREA NITROGEN 6 MG/DL (7-18); BUN/CREATININE RATIO 7.5 (6.6-38.0); CALCIUM 9.1 MG/DL (8.5-10.1); CHLORIDE 107 MMOL/L (99-107); GLUCOSE 102 MG/DL (70-104); MAGNESIUM 2.1 MG/DL (1.5-2.4); POTASSIUM 3.8 MMOL/L (3.5-5.1); SODIUM 141 MMOL/L (135-145); TOTAL CARBON DIOXIDE 25.4 MMOL/L (24-32); TOTAL PROTEIN 6.5 G/DL (6.4-8.2); eGFR 72 ML/MIN
--- NOTE | 2019-09-15 06:24 | NUR ---
Problems reprioritized. Patient report given, questions answered & plan of care reviewed with Emilia Henley RN.
--- NOTE | 2019-09-15 06:26 | NUR ---
Patient in room PCU 3016. I have received report from [facility] and had the opportunity to ask questions and assume patient care.
[2019-09-15 07:00] VITALS: BP 122/75
[2019-09-15] MEDS ORDERED: GABA600T13 PO (07:01)
[2019-09-15 07:12] LABS: NUCLEATED RED BLOOD CELLS 3 /100WBC (0-0); TOTAL CELLS COUNTED 100
[2019-09-15 07:13] LABS: ANISOCYTOSIS 1+; GIANT PLATELET FEW; HYPOCHROMASIA 1+; LARGE PLATELETS FEW; PLATELET ESTIMATE INCREASED; POLYCHROMASIA 1+
[2019-09-15] MEDS: BUPRENORPHINE HCL 600 MCG PO SCH (08:00)
[2019-09-15] MEDS: docusate sod 100mg capsule PO SCH (08:02)
[2019-09-15] MEDS: loratadine 10mg tablet PO SCH (08:02)
[2019-09-15] MEDS: aspirin 81mg tab.chew PO SCH (08:02)
[2019-09-15] MEDS: vitamin B comp w/Vit. C tab 1 TAB TABLET PO SCH (08:03)
[2019-09-15] MEDS: duloxetine 30mg CAPSULE.DR PO SCH (08:04)
[2019-09-15] MEDS: levoTHYROXINE 75mcg tablet PO SCH (08:04)
[2019-09-15] MEDS: gabapentin 400mg capsule PO SCH (08:04)
[2019-09-15] MEDS: potassium chloride 10mEq ER tablet PO SCH (08:05)
[2019-09-15] MEDS: lactobacillus rhamnosus 10,000 MMU CELLS/CAPSULE PO SCH (08:07)
[2019-09-15] MEDS: pantoprazole 40mg Tablet.DR PO SCH (08:07)
[2019-09-15] MEDS: sennosides/docusate sodium tablet PO SCH (08:08)
[2019-09-15] MEDS: metoprolol succinate 25mg (24-HOUR) SR. Tablet PO SCH (08:08)
--- NOTE | 2019-09-15 10:38 | NUR ---
Patient was given orders to discharge home. Appointment scheduled with Dr. Osborne for 09/17 at 10:00 AM. Patient verified that pain medications were called in by MD at her preferred pharmacy ([facility]). Extended PIV DC'd, tip intact. Tele removed. Patient was given information regarding pertinent vaccinations for Splenectomy patients. Patient stated she will FU with Dr. Osborne at her appointment. Patients daughter La picked her up and she left in stable condition.
== END 2019-09-15 10:30 | disposition home or self-care (01) | DRG 957 ==
LOC: ER 16:42 → CICU 2S 09-08 00:23 → PCU 3S 09-10 15:03
PROVIDERS: ADMIT Surgery; ATTEND Surgery
PROC: 07TP0ZZ Resection of Spleen, Open Approach (ICD-10-PCS; principal; 2019-09-07 23:08)
PROC: 30233N1 Transfusion of Nonautologous Red Blood Cells into Peripheral Vein, Percutaneous Approach (ICD-10-PCS; 2019-09-08)
PROC: 3E0234Z Introduction of Serum, Toxoid and Vaccine into Muscle, Percutaneous Approach (ICD-10-PCS; 2019-09-08)
DX: S36.032A Major laceration of spleen, initial encounter (principal); R57.8 Other shock; S27.321A Contusion of lung, unilateral, initial encounter; W01.0XXA Fall on same level from slipping, tripping and stumbling without subsequent striking against object, initial encounter; S20.212A Contusion of left front wall of thorax, initial encounter; G89.29 Other chronic pain; G47.33 Obstructive sleep apnea (adult) (pediatric); I10 Essential (primary) hypertension; R00.0 Tachycardia, unspecified; Z88.6 Allergy status to analgesic agent; Z88.2 Allergy status to sulfonamides; Z88.8 Allergy status to other drugs, medicaments and biological substances; Z79.899 Other long term (current) drug therapy; Z79.82 Long term (current) use of aspirin; Z79.890 Hormone replacement therapy; Z23 Encounter for immunization; Y93.89 Activity, other specified; Y99.8 Other external cause status; Y92.007 Garden or yard of unspecified non-institutional (private) residence as the place of occurrence of the external cause
CPT/HCPCS: 36415; 71045; 71260; 73030; 74177; 76937; 80053; 80202; 81001; 82948; 83605; 83735; 83880; 84100; 84132; 84443; 84484; 85025; 85027; 85610; 85730; 86885; 86900; 86901; 86920; 87040; 87081; 87088; 88305; 90732; 93005; 96374; 97110; 97116; 97161; 97530; 99291; A4618; A7000; C1758; C9399; G0378; J0360; J0690; J0713; J0780; J1170; J1644; J2250; J2270; J2405; J2710; J2997; J3010; J3370; J3480; J3490; J7050; J7120; P9016; P9045; Q9967

== ENCOUNTER 2020-04-04 19:42 | Emergency (ER) | payer MEDICARE, MEDICAID ==
[~2020-04-04] VITALS: Ht 165.1 cm; Wt 82.7 kg
[~2020-04-04 19:42] MED LIST: ASPI-1265 PO; BUPR600F2 BU; DULO-31 PO; FURO40TA4 PO; GABA600T13 PO; GUAN1TAB28 PO; LEVO75TA7 PO; LORA10TA7 PO; METO-411 PO; OMEP20TA23 PO; POTA10TA36 PO; PRAV40TA3 PO; TIZA2CAP PO; VITA1CAP PO
[2020-04-04] MEDS ORDERED: ringers solution, lactated 1000ml IV soln IV ONE (20:15)
[2020-04-04 20:33] LABS: BASOPHILS # (AUTO) 0.2 X10'3 (0-0.2); EOSINOPHILS # (AUTO) 0.2 X10'3 (0-0.9); EOSINOPHILS % (AUTO) 1.9 % (0-6); HEMOGLOBIN 9.1 g/dl (12.0-16.0); MEAN PLATELET VOLUME 7.4 FL (7.4-10.4); MONOCYTES # (AUTO) 0.7 X10'3 (0-0.9)
[2020-04-04 20:35] LABS: LYMPHOCYTES # (AUTO) 2.4 X10'3 (1.1-4.8); LYMPHOCYTES % (AUTO) 28.6 % (21-51); MEAN CORPUSCULAR HEMOGLOBIN 23.3 PG (27.0-31.0); MEAN CORPUSCULAR HGB CONC 31.5 g/dL (33.0-36.5); MEAN CORPUSCULAR VOLUME 74.1 FL (78-98); MONOCYTES % (AUTO) 8.7 % (2-12); NEUTROPHILS % (AUTO) 58.8 % (42-75); PLATELET COUNT 676 X10'3 (140-440); RED BLOOD COUNT 3.91 X10'6 (4.20-5.60); RED CELL DISTRIBUTION WIDTH 20.6 % (11.5-14.5); WHITE BLOOD COUNT 8.5 X10'3 (4.5-11.0)
[2020-04-04 20:56] LABS: ALANINE AMINOTRANSFERASE 28 U/L (12-78); ALBUMIN 3.6 G/DL (3.4-5.0); ALBUMIN/GLOBULIN RATIO 1.1 (1.1-1.5); ALKALINE PHOSPHATASE 153 IU/L (46-116); ANION GAP 6 (8-16); ASPARTATE AMINO TRANSFERASE 21 U/L (10-37); BILIRUBIN,TOTAL 0.3 MG/DL (0.1-1.0); BLOOD UREA NITROGEN 12 MG/DL (7-18); BUN/CREATININE RATIO 10.3 (6.6-38.0); CALCIUM 8.6 MG/DL (8.5-10.1); CHLORIDE 104 MMOL/L (99-107); CREATININE 1.16 MG/DL (0.40-0.90); GLUCOSE 131 MG/DL (70-104); LIPASE 72 U/L (73-393); SODIUM 141 MMOL/L (135-145); TOTAL CARBON DIOXIDE 30.7 MMOL/L (24-32); TROPONIN I < 0.04 NG/ML (0.0-0.05); eGFR 47 ML/MIN
[2020-04-04 20:57] LABS: ANISOCYTOSIS 3+; ELLIPTOCYTES 1+; HYPOCHROMASIA 1+; LARGE PLATELETS FEW; MICROCYTOSIS 1+; PLATELET ESTIMATE INCREASED; POIKILOCYTOSIS 1+; TARGET CELLS 1+
[2020-04-04 21:02] LABS: POTASSIUM 2.8 MMOL/L (3.5-5.1)
[2020-04-04] MEDS ORDERED: potassium Cl 20 mEq SR tablet PO ONE (21:15)
[2020-04-04] MEDS ORDERED: ringers solution, lacted 1,000 ML IV ONE (21:25)
[2020-04-04] MEDS: magnesium 2GM in 50ml NS 50 ML IV SCH ×2 (21:26→22:32)
--- NOTE | 2020-04-04 21:32 | NUR ---
ULTRASOUND AT BEDSIDE
[2020-04-04 21:50] LABS: CLARITY,URINE CLEAR (Clear); COLOR,URINE YELLOW (Yellow); GLUCOSE, URINE NEGATIVE (Neg); KETONES,URINE NEGATIVE (Neg); LEUKOCYTE ESTERASE ,URINE NEGATIVE (Neg); NITRITES, URINE NEGATIVE (Neg); OCCULT BLOOD,URINE NEGATIVE (Neg); PH,URINE 5.5 (4.8-8.0); PROTEIN,URINE NEGATIVE (Neg); UROBILINOGEN,URINE 0.2 E.U/dL (0.2-1.0)
[2020-04-04 21:55] LABS: UA COLLECTION TYPE STRAIGHT CATH
--- NOTE | 2020-04-04 22:02 | NUR ---
CONTACT INFO: ADELINE MEEHAN" [phone]
[2020-04-05 00:22] VITALS: BP 116/68
== END 2020-04-05 | disposition home or self-care (01) ==
LOC: ER 19:43
DX: F15.90 Other stimulant use, unspecified, uncomplicated (principal); E87.6 Hypokalemia; R59.0 Localized enlarged lymph nodes; R60.0 Localized edema; R51 Headache; R11.10 Vomiting, unspecified; R19.7 Diarrhea, unspecified; R53.1 Weakness; R41.0 Disorientation, unspecified; Z88.2 Allergy status to sulfonamides; Z87.891 Personal history of nicotine dependence; Z88.8 Allergy status to other drugs, medicaments and biological substances; Z79.82 Long term (current) use of aspirin; Z79.899 Other long term (current) drug therapy
CPT/HCPCS: 36415; 70450; 71045; 80053; 81003; 82948; 83605; 83690; 84439; 84443; 84484; 85025; 93005; 93970; 96361; 96365; 96366; 99285; J3475; J7120

== ENCOUNTER 2021-10-28 22:09 | Emergency (ER) | payer MEDICARE, MEDICAID ==
[~2021-10-28] VITALS: Ht 167.6 cm; Wt 86.4 kg
[~2021-10-28 22:09] MED LIST changes: +POTA-205 PO; -POTA10TA36 PO
[2021-10-28 22:12] VITALS: BP 173/70
[2021-10-28] MEDS ORDERED: TETanus/Pertussis (Acell)/Diphther VAC/PF (Tdap-Adult) 0.5ml syringe IMVAC ONE (22:35)
== END 2021-10-28 23:38 | disposition home or self-care (01) ==
LOC: ER 22:10
DX: S61.211A Laceration without foreign body of left index finger without damage to nail, initial encounter (principal); F15.10 Other stimulant abuse, uncomplicated; Z88.6 Allergy status to analgesic agent; Z88.2 Allergy status to sulfonamides; Z88.8 Allergy status to other drugs, medicaments and biological substances; Z79.899 Other long term (current) drug therapy; W26.0XXA Contact with knife, initial encounter; Y93.89 Activity, other specified; Y92.89 Other specified places as the place of occurrence of the external cause; Y99.8 Other external cause status
CPT/HCPCS: 12001; 99282

== ENCOUNTER 2021-12-20 15:58 | Emergency (ER) | payer MEDICARE, MEDICAID ==
[~2021-12-20] VITALS: Ht 167.6 cm; Wt 68.2 kg
[2021-12-20 16:48] VITALS: BP 148/92
[2021-12-20] MEDS ORDERED: CEPH250T PO (16:57)
== END 2021-12-20 17:13 | disposition home or self-care (01) ==
LOC: ER 15:58
DX: L03.032 Cellulitis of left toe (principal); F15.90 Other stimulant use, unspecified, uncomplicated; Z88.2 Allergy status to sulfonamides; Z88.5 Allergy status to narcotic agent; Z88.8 Allergy status to other drugs, medicaments and biological substances; Z79.82 Long term (current) use of aspirin; Z79.899 Other long term (current) drug therapy
CPT/HCPCS: 99283

== ENCOUNTER 2022-09-21 17:23 | Emergency (ER) | payer MEDICARE, MEDICAID ==
[~2022-09-21] VITALS: Ht 165.1 cm; Wt 77.3 kg
[2022-09-21 18:44] VITALS: BP 167/90
--- NOTE | 2022-09-21 18:47 | NUR ---
PT HARD OF HEARING IN RIGHT EAR.
[2022-09-21 20:05] LABS: D-DIMER 1.37 MG/L FEU (0-0.50)
--- NOTE | 2022-09-21 21:05 | NUR ---
VASCULAR AT BEDSIDE
== END 2022-09-21 21:51 | disposition home or self-care (01) ==
LOC: ER 17:24
DX: S80.12XA Contusion of left lower leg, initial encounter (principal); Z88.6 Allergy status to analgesic agent; Z88.2 Allergy status to sulfonamides; Z79.899 Other long term (current) drug therapy; Z88.5 Allergy status to narcotic agent; Z79.82 Long term (current) use of aspirin; Z79.1 Long term (current) use of non-steroidal anti-inflammatories (NSAID); X58.XXXA Exposure to other specified factors, initial encounter; Y93.89 Activity, other specified; Y92.89 Other specified places as the place of occurrence of the external cause; Y99.8 Other external cause status
CPT/HCPCS: 36415; 85379; 93971; 99284

== ENCOUNTER 2022-10-24 11:41 | Emergency (ER) | payer MEDICARE, MEDICAID ==
[~2022-10-24] VITALS: Ht 165.1 cm; Wt 79.5 kg
[2022-10-24 15:20] VITALS: BP 135/90
== END 2022-10-24 15:22 | disposition home or self-care (01) ==
LOC: ER 11:42
DX: M79.11 Myalgia of mastication muscle (principal); M25.461 Effusion, right knee; F15.10 Other stimulant abuse, uncomplicated
CPT/HCPCS: 73564; 99284

== ENCOUNTER 2022-10-28 17:04 | Emergency (ER) | payer MEDICARE, MEDICAID ==
[~2022-10-28] VITALS: Ht 165.1 cm; Wt 79.5 kg
[2022-10-28 17:54] VITALS: BP 138/72
== END 2022-10-29 00:14 | disposition home or self-care (01) ==
LOC: ER 17:05
DX: S20.20XA Contusion of thorax, unspecified, initial encounter (principal); W19.XXXA Unspecified fall, initial encounter; Y93.89 Activity, other specified; Y92.89 Other specified places as the place of occurrence of the external cause; Y99.8 Other external cause status; Z88.6 Allergy status to analgesic agent; Z88.5 Allergy status to narcotic agent; Z88.2 Allergy status to sulfonamides
CPT/HCPCS: 71046; 93005; 99283

== ENCOUNTER 2024-07-29 11:57 | Emergency (ER) | payer MEDICARE, MEDICAID ==
[~2024-07-29] VITALS: Ht 165.1 cm; Wt 80.9 kg
[2024-07-29] MEDS: normal saline 1000ml 1,000 ML IVB ONE (12:01)
[2024-07-29 12:48] LABS: BASOPHILS # (AUTO) 0.1 X10'3 (0-0.2); EOSINOPHILS # (AUTO) 0.2 X10'3 (0-0.9); EOSINOPHILS % (AUTO) 1.9 % (0-6); HEMATOCRIT 39.3 % (35.0-45.0); HEMOGLOBIN 12.6 g/dl (12.0-16.0); LYMPHOCYTES # (AUTO) 4.8 X10'3 (1.1-4.8); LYMPHOCYTES % (AUTO) 40.4 % (21-51); MEAN CORPUSCULAR VOLUME 93.8 FL (78-98); MEAN PLATELET VOLUME 8.1 FL (7.4-10.4); MONOCYTES # (AUTO) 1.1 X10'3 (0-0.9); MONOCYTES % (AUTO) 9.5 % (2-12); NEUTROPHILS # (AUTO) 5.7 X10'3 (1.8-7.7); NEUTROPHILS % (AUTO) 47.2 % (42-75); PLATELET COUNT 424 X10'3 (140-440); RED BLOOD COUNT 4.19 X10'6 (4.20-5.60); RED CELL DISTRIBUTION WIDTH 14.2 % (11.5-14.5)
[2024-07-29 13:04] LABS: ALBUMIN 3.2 G/DL (3.4-5.0); BLOOD UREA NITROGEN 19 MG/DL (7-18); BUN/CREATININE RATIO 11.1 (10.0-20.0); CALCIUM 8.5 MG/DL (8.5-10.1); CHLORIDE 108 MMOL/L (99-107); CREATININE 1.71 MG/DL (0.40-0.90); GLUCOSE 87 MG/DL (70-104); POTASSIUM 3.4 MMOL/L (3.5-5.1); PRO BRAIN NATRIURETIC PEPTIDE 160 PG/ML (0-125); TOTAL CARBON DIOXIDE 26.7 MMOL/L (24-32); eCRCL 28 ML/MIN; eGFR 30 ML/MIN
[2024-07-29 13:08] LABS: ANION GAP 8 (8-16); SODIUM 143 MMOL/L (135-145)
[2024-07-29] MEDS ORDERED: normal saline 500ml IV soln 500 ML IV ONE (13:10)
[2024-07-29 13:41] LABS: BILIRUBIN,URINE SMALL (Neg); CLARITY,URINE CLOUDY (Clear); COLOR,URINE YELLOW (Yellow); GLUCOSE, URINE NEGATIVE (Neg); KETONES,URINE NEGATIVE (Neg); LEUKOCYTE ESTERASE ,URINE NEGATIVE (Neg); NITRITES, URINE NEGATIVE (Neg); OCCULT BLOOD,URINE SMALL (Neg); PH,URINE 5.5 (4.8-8.0); PROTEIN,URINE 30 mg/dl (Neg); UA COLLECTION TYPE NON-SPECIFIED; UROBILINOGEN,URINE 0.2 E.U/dL (0.2-1.0)
[2024-07-29 13:55] LABS: HYALINE CASTS >30 /LPF (NEGATIVE); SQUAMOUS EPITHELIAL CELL,UR MODERATE /LPF (FEW)
[2024-07-29 13:56] LABS: BACTERIA,URINE 1+ /HPF (Neg); CAL OXALATE CRYSTALS 1+ /HPF (NEGATIVE); MUCUS STRANDS MANY /LPF (Neg); TRANSITIONAL EPI CELLS,URINE FEW /HPF
[2024-07-29 14:20] LABS: D-DIMER 0.97 MG/L FEU (0-0.50)
[2024-07-29] MEDS: CefTRIAXone/D5W-Rocephin 1gm 50 ML IV ONE (14:30)
[2024-07-29] MEDS: ipratropium/albuterol 3ml nebule NEB ONE (14:50)
[2024-07-29 14:51] VITALS: PULSE 53; PULSE 59; RESP 16; RESP 17; O2SAT 94; O2SAT 98
[2024-07-29] MEDS ORDERED: CEFU250T95 PO (15:45)
[2024-07-29 17:00] VITALS: BP 124/61; PULSE 57; RESP 16; O2SAT 92
== END 2024-07-29 17:07 | disposition home or self-care (01) ==
LOC: ER 11:58
DX: R42 Dizziness and giddiness (principal); T50.995A Adverse effect of other drugs, medicaments and biological substances, initial encounter; E86.0 Dehydration; J44.1 Chronic obstructive pulmonary disease with (acute) exacerbation; I10 Essential (primary) hypertension; E03.9 Hypothyroidism, unspecified; G89.29 Other chronic pain; M19.90 Unspecified osteoarthritis, unspecified site; F15.90 Other stimulant use, unspecified, uncomplicated; Z88.8 Allergy status to other drugs, medicaments and biological substances; Z88.2 Allergy status to sulfonamides; Z79.82 Long term (current) use of aspirin; Z79.899 Other long term (current) drug therapy; Y92.89 Other specified places as the place of occurrence of the external cause
CPT/HCPCS: 36415; 71045; 80048; 81001; 83880; 84484; 85025; 85379; 87088; 93005; 94640; 96361; 96365; 99285; J0696; J7030; 94760

== ENCOUNTER 2025-02-13 14:28 | Emergency (ER) | payer MEDICARE, MEDICAID ==
[~2025-02-13] VITALS: Ht 165.1 cm; Wt 90.2 kg
[~2025-02-13 14:28] MED LIST changes: +GABA-1405 PO; -GABA600T13 PO
[2025-02-13 15:26] LABS: BASOPHILS # (AUTO) 0.1 X10'3 (0-0.2); EOSINOPHILS # (AUTO) 0.3 X10'3 (0-0.9); EOSINOPHILS % (AUTO) 3.1 % (0-6); HEMATOCRIT 39.6 % (35.0-45.0); HEMOGLOBIN 12.6 g/dl (12.0-16.0); LYMPHOCYTES # (AUTO) 2.7 X10'3 (1.1-4.8); LYMPHOCYTES % (AUTO) 28.6 % (21-51); MEAN CORPUSCULAR HEMOGLOBIN 29.1 PG (27.0-31.0); MEAN CORPUSCULAR HGB CONC 31.8 g/dL (33.0-36.5); MEAN CORPUSCULAR VOLUME 91.2 FL (78-98); MEAN PLATELET VOLUME 8.8 FL (7.4-10.4); MONOCYTES # (AUTO) 0.6 X10'3 (0-0.9); MONOCYTES % (AUTO) 6.3 % (2-12); NEUTROPHILS # (AUTO) 5.8 X10'3 (1.8-7.7); PLATELET COUNT 435 X10'3 (140-440); RED BLOOD COUNT 4.34 X10'6 (4.20-5.60); WHITE BLOOD COUNT 9.6 X10'3 (4.5-11.0)
[2025-02-13 15:58] LABS: ALANINE AMINOTRANSFERASE 25 U/L (12-78); ALBUMIN 3.5 G/DL (3.4-5.0); ALBUMIN/GLOBULIN RATIO 0.9 (1.1-1.5); ALKALINE PHOSPHATASE 133 IU/L (46-116); ANION GAP 8 (8-16); ASPARTATE AMINO TRANSFERASE 17 U/L (10-37); BILIRUBIN,TOTAL 0.2 MG/DL (0.1-1.0); BLOOD UREA NITROGEN 11 MG/DL (7-18); BUN/CREATININE RATIO 12.1 (10.0-20.0); CALCIUM 8.6 MG/DL (8.5-10.1); CHLORIDE 104 MMOL/L (99-107); CREATININE 0.91 MG/DL (0.40-0.90); GLUCOSE 185 MG/DL (70-104); POTASSIUM 3.5 MMOL/L (3.5-5.1); SODIUM 144 MMOL/L (135-145); TOTAL CARBON DIOXIDE 31.7 MMOL/L (24-32); TOTAL PROTEIN 7.6 G/DL (6.4-8.2); eCRCL 53 ML/MIN; eGFR 61 ML/MIN
[2025-02-13 16:09] LABS: PRO BRAIN NATRIURETIC PEPTIDE 79 PG/ML (0-125)
[2025-02-13 17:39] LABS: ALANINE AMINOTRANSFERASE 22 U/L (12-78); ALBUMIN 3.4 G/DL (3.4-5.0); ALBUMIN/GLOBULIN RATIO 0.9 (1.1-1.5); ALKALINE PHOSPHATASE 126 IU/L (46-116); ANION GAP 6 (8-16); ASPARTATE AMINO TRANSFERASE 15 U/L (10-37); BILIRUBIN,TOTAL 0.2 MG/DL (0.1-1.0); BLOOD UREA NITROGEN 11 MG/DL (7-18); BUN/CREATININE RATIO 13.4 (10.0-20.0); CALCIUM 8.2 MG/DL (8.5-10.1); CHLORIDE 104 MMOL/L (99-107); CREATININE 0.82 MG/DL (0.40-0.90); GLUCOSE 159 MG/DL (70-104); POTASSIUM 3.6 MMOL/L (3.5-5.1); SODIUM 144 MMOL/L (135-145); TOTAL CARBON DIOXIDE 34.5 MMOL/L (24-32); TOTAL PROTEIN 7.3 G/DL (6.4-8.2); eCRCL 58 ML/MIN; eGFR 69 ML/MIN
[2025-02-13] MEDS ORDERED: LORA10TA7 PO (18:25)
[2025-02-13] MEDS ORDERED: AZIT250T81 PO (18:25)
[2025-02-13] MEDS ORDERED: ROBDML PO (18:25)
[2025-02-13 19:07] VITALS: BP 164/79; PULSE 78; RESP 16; TEMP 97.7; O2SAT 98
== END 2025-02-13 19:08 | disposition home or self-care (01) ==
LOC: ER 14:29
DX: B34.9 Viral infection, unspecified (principal); F15.90 Other stimulant use, unspecified, uncomplicated; Z88.5 Allergy status to narcotic agent; Z88.2 Allergy status to sulfonamides; Z88.6 Allergy status to analgesic agent; Z88.8 Allergy status to other drugs, medicaments and biological substances; Z79.899 Other long term (current) drug therapy; Z79.82 Long term (current) use of aspirin
CPT/HCPCS: 36415; 71045; 80053; 83880; 84484; 85025; 93005; 99285